=== PATIENT | male | born 1960 | race Caucasian/White ===

== ENCOUNTER → 2016-06-12 | Outpatient (CLI) | payer BC ==
[2016-06-12 14:19] LABS: ABSOLUTE EOSINOPHILS # (AUTO) 0.3 10^3/uL (0.0-0.6); ABSOLUTE LYMPHOCYTES (AUTO) 2.5 10^3/uL (0.5-4.7); ABSOLUTE MONOCYTES (AUTO) 0.7 10^3/uL (0.1-1.4); ABSOLUTE NEUT (AUTO) 5.3 10^3/uL (1.7-8.2); BASOPHILS % (AUTO) 0.3 % (0-2); HEMATOCRIT 44.5 % (37.9-51.0); HEMOGLOBIN 15.1 g/dL (13.5-17.0); HGB HCT DIFFERENCE 0.8; LYMPHOCYTES % (AUTO) 28.8 % (13-45); MEAN CORPUSCULAR HEMOGLOBIN 29.4 pg (27.0-33.4); MEAN CORPUSCULAR HGB CONC 33.9 g/dL (32.0-36.0); MEAN CORPUSCULAR VOLUME 87 fl (80-97); MONOCYTES % (AUTO) 7.8 % (3-13); RED BLOOD COUNT 5.13 10^6/uL (4.35-5.55); RED CELL DISTRIBUTION WIDTH 15.2 % (11.5-14.0); SEGMENTED NEUTROPHILS % (AUTO) 60.1 % (42-78); WHITE BLOOD COUNT 8.8 10^3/uL (4.0-10.5)
[2016-06-12 14:48] LABS: ALANINE AMINOTRANSFERASE 34 U/L (21-72); ALBUMIN 4.3 g/dL (3.5-5.0); ALKALINE PHOSPHATASE 68 U/L (38-126); ANION GAP 13 (5-19); ASPARTATE AMINO TRANSFERASE 28 U/L (17-59); BILIRUBIN,DIRECT 0.3 mg/dL (0.0-0.4); BILIRUBIN,TOTAL 0.6 mg/dL (0.2-1.3); BLOOD UREA NITROGEN 10 mg/dL (7-20); CALCIUM 9.5 mg/dL (8.4-10.2); CARBON DIOXIDE 32 mmol/L (22-30); CHLORIDE 97 mmol/L (98-107); CREATININE RESULT 0.88 mg/dL (0.52-1.25); Direct HDL 40 mg/dL (>40); GLUCOSE 112 mg/dL (75-110); POTASSIUM 4.4 mmol/L (3.6-5.0); SODIUM 142.3 mmol/L (137-145); TOTAL PROTEIN 6.9 g/dL (6.3-8.2); TRIGLYCERIDES 187 mg/dL (<150)
[2016-06-12 14:59] LABS: DIRECT LDL 139 mg/dL (<100)
[2016-06-12 15:16] LABS: VLDL CHOLESTEROL 37.4 mg/dL (10-31)
== END ==
LOC: OD 12:43
PROVIDERS: ATTEND Nurse Practitioner Psychiatric/Mental Health
DX: Z00.00 Encounter for general adult medical examination without abnormal findings (principal); Z12.5 Encounter for screening for malignant neoplasm of prostate
CPT/HCPCS: 36415; 80053; 80061; 84153; 85025

== ENCOUNTER 2017-06-05 06:42 | Day surgery (SDC) | payer BC ==
[~2017-06-05 06:42] MED LIST: KETOROLAC TROMETHAMINE 0.45% 4 DROP/0.4 ML DROPERETTE OD PRN
[2017-06-05] MEDS ORDERED: MIDAZOLAM 2 MG/2 ML INJ ONE (07:06)
[2017-06-05] MEDS: TETRACAINE HCL 0.5% OPH SOLN 2 ML OD PRN ×3 (07:07→08:03)
[2017-06-05] MEDS: CYCLOPENTOLATE 0.2%/PHENYLEPHRINE 1% OPH SOLN 2 ML OD PRN ×3 (07:08→07:35)
[2017-06-05] MEDS: TROPICAMIDE 1% OPH SOLN 3 ML OD PRN ×3 (07:08→07:35)
[2017-06-05] MEDS: BESIFLOXACIN HCL 0.6% OPH SUSP 5 ML BOTTLE OD PRN ×3 (07:08→09:01)
[2017-06-05] MEDS ORDERED: CHONDR SU A NA/HYALUR INTRAOC KIT (SURGICARE) ONE (07:13)
[2017-06-05] MEDS ORDERED: LIDOCAINE 1% INJ-PF (10 MG/ML) 30 ML SDV ONE (07:13)
[2017-06-05] MEDS ORDERED: EPINEPHRINE INJ/PF 1 MG/1 ML AMPULE ONE (07:13)
[2017-06-05] MEDS ORDERED: ACETYLCHOLINE CHLORIDE 20 MG/2 ML KIT ONE (08:38)
[2017-06-05] MEDS ORDERED: CHONDR SU A NA/HYALUR SOD 0.5 ML DISP.SYRIN ONE ×2 (08:38→08:50)
[2017-06-05] MEDS ORDERED: ACETAZOLAMIDE SODIUM INJ 500 MG VIAL ONE (08:49)
[2017-06-05] MEDS ORDERED: BRIMONIDINE TARTRATE 0.2% OPH SOLN 5 ML ONE (09:08)
[2017-06-05] MEDS ORDERED: TOBRAMYCIN SULFATE/DEXAMETH OPH OINTMENT 3.5 GM ONE (09:30)
--- NOTE | 2017-06-05 14:04 | [facility] OPERATIVE REPORT E ---
[facility] Operative Report NAME: SANGEETHA AYALA AGE: 57Y DATE OF SURGERY: 06/05/2017 ROOM: PREOPERATIVE DIAGNOSIS: CATARACT, RIGHT EYE. POSTOPERATIVE DIAGNOSIS: CATARACT, RIGHT EYE. OPERATION: Cataract extraction with sulcus intraocular lens implant of the right eye. SURGEON: PEREZ RIBEIRO M.D. ANESTHESIA: Topical. COMPLICATIONS: Posterior capsule rupture. PROCEDURE: After obtaining appropriate consent, the patient's right eye was prepped and draped in sterile fashion as well as the surgeon in a sterile manner and cataract surgery was started. First a paracentesis blade was used to make a small side-port incision. Viscoelastic was used to inflate the anterior chamber. Next a 2.4 mm incision was made with the paracentesis blade. A continuous capsulorrhexis incision was made using a cystotome and Utrata forceps. Following this hydrodissection was carried out to make the lens fully loose and mobile and it was rotated 90 degrees. Following this, a [id number] technique was used to phacoemulsify the lens with a CDE of 8.47. The remaining cortex was removed with irrigation/aspiration. Provisc was instilled into the capsular bag to inflate the bag. A MA60AC, 24.0 diopter lens was placed. The remaining viscoelastic material was removed with irrigation/aspiration. Following this, a 10-0 nylon suture was used to close the incision and it was found to be watertight. Vigamox was instilled in the eye and a protective shield was placed over the eye. The patient returned to the postoperative recovery in stable condition. After all 4 quadrants of the nucleus had been removed it was noticed that there was a small peripheral posterior capsule rupture. At no point was any vitreous identified coming forward. Viscoelastic was immediately applied to this location. An intact small anterior capsular rectus was curvilinear and it looked like a good opportunity for placement of a sulcus IOL. The appropriate sulcus IOL was brought onto the field. The incision was enlarged and the sulcus IOL was placed anterior to the anterior capsule and found to be in excellent position. Following this Miochol was inserted to shrink the pupil. The pupil was small and round and at no point was any vitreous coming forward. The incision was closed with 2 simple interrupted 10-0 nylon sutures and found to be watertight. At this point for prophylaxis IV Diamox 500 mg IV was given. A drop of Alphagan, a drop of Besivance and then TobraDex ointment was placed in the eye with a pressure patch. Patient woke up in postoperative recovery in stable condition. DICTATING PHYSICIAN: PEREZ RIBEIRO M.D. [id number] PHY#: [id number] ID: [id number] JOB#: [id number] ACCT: [id number] cc:PEREZ RIBEIRO M.D. >
--- NOTE | 2017-06-05 14:04 | [facility] DISCHARGE SUMMARY E ---
[facility] Discharge Summary NAME: SANGEETHA AYALA AGE: 57Y ADMITTED: 06/05/2017 DISCHARGED: 06/05/2017 DIAGNOSIS: CATARACT, RIGHT EYE. SUMMARY: This is a 57-year-old male who underwent cataract extraction of the right eye with complication of a posterior capsule rupture with placement of a sulcus IOL to the right eye. At no point during the procedure did any nuclear fragments fall back in the eye and the nucleus was able to be removed in its entirety. The patient underwent surgery because he was having trouble seeing road signs and words on the television. He should be on a regular diet. He should use his Alphagan at 3 p.m. and come in for a same-day postop visit approximately 5 hours later and he will be using the Besivance, Ilevro and Durezol at 3 p.m. as well after he takes off the pressure patch. Again, he will be on a regular diet. I will see them for a same-day visit. DICTATING PHYSICIAN: PEREZ RIBEIRO M.D. [id number] PHY#: [id number] ID: [id number] JOB#: [id number] ACCT: [id number] cc:PEREZ RIBEIRO M.D. >
== END 2017-06-05 10:11 | disposition home or self-care (01) ==
LOC: SC 06:42
PROVIDERS: ATTEND Internal Medicine
PROC: 08RJ3JZ Replacement of Right Lens with Synthetic Substitute, Percutaneous Approach (ICD-10-PCS; principal; 2017-06-05 08:00)
DX: H25.89 Other age-related cataract (principal); J45.909 Unspecified asthma, uncomplicated; I10 Essential (primary) hypertension; M19.90 Unspecified osteoarthritis, unspecified site; E11.9 Type 2 diabetes mellitus without complications; E66.9 Obesity, unspecified; M10.9 Gout, unspecified; K21.9 Gastro-esophageal reflux disease without esophagitis; Z87.891 Personal history of nicotine dependence; Z79.51 Long term (current) use of inhaled steroids; Z79.899 Other long term (current) drug therapy; Z79.82 Long term (current) use of aspirin; Z68.41 Body mass index [BMI] 40.0-44.9, adult
CPT/HCPCS: 82962; 66984; V2632; J1120; J3490 ×6; J2250; J0171; 142

== ENCOUNTER → 2017-06-27 | Outpatient (CLI) | payer BC ==
--- NOTE | 2017-06-27 13:59 | EKG REPORT ---
SEVERITY:- NORMAL ECG - SINUS RHYTHM : Confirmed by: August Holland MD 27-Jun-2017 13:57:49
== END ==
LOC: OD 09:40
PROVIDERS: ATTEND Physician Assistant
DX: Z79.891 Long term (current) use of opiate analgesic (principal)
CPT/HCPCS: 36415; 80358; 93005; 93010

== ENCOUNTER 2018-10-24 14:17 | Emergency (ER) | payer BC ==
[2018-10-24] MEDS ORDERED: ASPIRIN 81 MG TABLET, CHEWABLE PO ONE (14:46)
--- NOTE | 2018-10-24 14:48 | ER Document Report ---
ED Medical Screen (RME) - General Chief Complaint: Chest Pain Stated Complaint: CHEST PAIN Time Seen by Provider: 10/24/18 14:40 Primary Care Provider: JUDY TADEO MD [Primary Care Provider] - Follow up as needed Mode of Arrival: Ambulatory Information source: Patient Notes: 58-year-old male presented to ED for complaint of chest pain since about 1130 today. He states he has been having chest pain off and on for the last month. He does have a history of pulmonary fibrosis, sarcoidosis, autoimmune disease, psoriatic arthritis, diabetes type 2, and dementia. He has had 2 back surgeries one neck surgery and lung biopsies. He does not smoke very rarely drinks and does not use any drugs. He is disabled and lives with his family. Patient is alert and oriented and speaking in full sentences. Patient is on home oxygen 3 L per nasal cannula I have greeted and performed a rapid initial assessment of this patient. A comprehensive ED assessment and evaluation of the patient, analysis of test results and completion of medical decision making process will be conducted by an additional ED providers. Dictation of this chart was performed using voice recognition software; therefore, there may be some unintended grammatical errors. TRAVEL OUTSIDE OF THE [place] IN LAST 30 DAYS: No - Related Data Allergies/Adverse Reactions: No Known Allergies Allergy (Verified 10/24/18 14:19) Past Medical History - Past Medical History Cardiac Medical History: Reports: Hx Hypertension Denies: Hx Heart Attack - HEART CATH B/C LEFT LUNG HURT-WNL Pulmonary Medical History: Reports: Hx Asthma, Hx Bronchitis, Hx Pneumonia Denies: Hx Tuberculosis Neurological Medical History: Reports: Hx Seizures - SHORT TERM MEMORY,LAST SEIZURE A CHILD. Denies: Hx Cerebrovascular Accident Renal/ Medical History: Reports: Hx Kidney Stones GI Medical History: Reports: Hx Gastroesophageal Reflux Disease, Hx Hiatal Hernia. Denies: Hx Hepatitis, Hx Ulcer Musculoskeltal Medical History: Reports Hx Arthritis Psychiatric Medical History: Reports: Hx Anxiety, Hx Depression Infectious Medical History: Denies: Hx Hepatitis Past Surgical History: Denies: Hx Open Heart Surgery, Hx Pacemaker - Immunizations Hx Diphtheria, Pertussis, Tetanus Vaccination: Yes Physical Exam - Vital signs Vitals: Temp Pulse Resp BP Pulse Ox 98.3 F 94 20 175/101 H 98 10/24/18 14:38 10/24/18 14:38 10/24/18 14:38 10/24/18 14:38 10/24/18 14:38 Course - Vital Signs Vital signs: Temp Pulse Resp BP Pulse Ox 98.3 F 94 20 175/101 H 98 10/24/18 14:38 10/24/18 14:38 10/24/18 14:38 10/24/18 14:38 10/24/18 14:38 Doctor's Discharge - Discharge Referrals: JUDY TADEO MD [Primary Care Provider] - Follow up as needed
[2018-10-24 15:20] LABS: ABSOLUTE BASOPHILS # (AUTO) 0.1 10^3/uL (0.0-0.2); ABSOLUTE EOSINOPHILS # (AUTO) 0.3 10^3/uL (0.0-0.6); ABSOLUTE LYMPHOCYTES (AUTO) 2.5 10^3/uL (0.5-4.7); ABSOLUTE MONOCYTES (AUTO) 0.6 10^3/uL (0.1-1.4); ABSOLUTE NEUT (AUTO) 5.2 10^3/uL (1.7-8.2); BASOPHILS % (AUTO) 0.7 % (0-2); HEMATOCRIT 38.9 % (37.9-51.0); HEMOGLOBIN 12.2 g/dL (13.5-17.0); LYMPHOCYTES % (AUTO) 29.3 % (13-45); MEAN CORPUSCULAR HGB CONC 31.4 g/dL (32.0-36.0); MEAN CORPUSCULAR VOLUME 80 fl (80-97); MONOCYTES % (AUTO) 6.7 % (3-13); PLATELET COUNT 229 10^3/uL (150-450); RED BLOOD COUNT 4.89 10^6/uL (4.35-5.55); RED CELL DISTRIBUTION WIDTH 19.6 % (11.5-14.0); SEGMENTED NEUTROPHILS % (AUTO) 60.3 % (42-78); TOTAL CELLS COUNTED % (AUTO) 100 %; WHITE BLOOD COUNT 8.7 10^3/uL (4.0-10.5)
[2018-10-24 15:31] LABS: INTERNATIONAL RATION (INR) 1.02; PROTHROMBIN TIME 13.4 SEC (11.4-15.4)
[2018-10-24 15:42] LABS: ALBUMIN 4.8 g/dL (3.5-5.0); ALKALINE PHOSPHATASE 70 U/L (38-126); ANION GAP 10 (5-19); ASPARTATE AMINO TRANSFERASE 21 U/L (17-59); BILIRUBIN,DIRECT 0.2 mg/dL (0.0-0.4); BILIRUBIN,TOTAL 0.5 mg/dL (0.2-1.3); BLOOD UREA NITROGEN 14 mg/dL (7-20); CALCIUM 9.5 mg/dL (8.4-10.2); CARBON DIOXIDE 28 mmol/L (22-30); CHLORIDE 101 mmol/L (98-107); CREATINE KINASE 77 U/L (55-170); GLUCOSE 151 mg/dL (75-110); POTASSIUM 4.3 mmol/L (3.6-5.0); TOTAL PROTEIN 7.2 g/dL (6.3-8.2)
--- NOTE | 2018-10-24 15:42 | RADIOLOGY REPORT (SQ) ---
EXAM DESCRIPTION: CHEST 2 VIEWS COMPLETED DATE/TIME: 10/24/2018 3:31 pm REASON FOR STUDY: chest pain COMPARISON: 01/29/2016 EXAM PARAMETERS: NUMBER OF VIEWS: two views TECHNIQUE: Digital Frontal and Lateral radiographic views of the chest acquired. RADIATION DOSE: NA LIMITATIONS: none FINDINGS: LUNGS AND PLEURA: No opacities, masses or pneumothorax. No pleural effusion. MEDIASTINUM AND HILAR STRUCTURES: No masses or contour abnormalities. HEART AND VASCULAR STRUCTURES: Heart normal size. No evidence for failure. BONES: No acute findings. HARDWARE: Anterior cervical fusion, mid OTHER: Hardware mid lower cervical spine, new finding since the prior study. IMPRESSION: 1. No significant interval changes since the prior study dated 01/29/2016. No acute fi ndings. TECHNICAL DOCUMENTATION: JOB ID: [id number] [employer]- All Rights Reserved Reading location - IP/workstation name: [email or web address]
--- NOTE | 2018-10-24 17:48 | EKG REPORT ---
SEVERITY:- BORDERLINE ECG - SINUS RHYTHM PROBABLE LEFT ATRIAL ABNORMALITY PROBABLE LATERAL INFARCT, OLD : Confirmed by: August Holland MD 24-Oct-2018 17:47:50
[2018-10-24] MEDS ORDERED: ACETAMINOPHEN 325 MG TABLET PO ONE (19:40)
--- NOTE | 2018-10-24 20:29 | ER Document Report ---
ED Cardiac - General Chief Complaint: Chest Pain Stated Complaint: CHEST PAIN Time Seen by Provider: 10/24/18 14:40 Primary Care Provider: [facility] [Provider Group] - Follow up as needed JUDY TADEO MD [Primary Care Provider] - 10/28/18 Mode of Arrival: Ambulatory Notes: Patient is a 58-year-old male that comes emergency department for chief complaint of chest pain and a headache. He states that around 11:30 AM he had pain in the center of his chest which was more noticeable than usual, however he has been having intermittent chest pain for the past 2 weeks. He states he started noticing the pain when he gave herself a shot of vitamin B12 in the right hip/buttock and accidentally broke the small needle off inside of him. He states that the area is sore but he cannot feel the foreign body. He denies difficulty breathing but he states he has been more fatigued over the past 2 weeks as well. He denies fever/chills, injury, nausea/vomiting. He states right now he only has a headache. Past medical history includes pulmonary fibrosis, sarcoidosis, hypertension, type 2 diabetes, and he is on 3 L nasal cannula at all times. He had a stress test in 2014 that was negative, never had a heart attack or heart catheterization. He has surgery scheduled next month for his neck and he has chronic pain in his neck as well. He has a buprenorphine patch on. TRAVEL OUTSIDE OF THE [place] IN LAST 30 DAYS: No - Related Data Allergies/Adverse Reactions: No Known Allergies Allergy (Verified 10/24/18 14:19) Past Medical History - General Information source: Patient - Social History Smoking Status: Current Some Day Smoker Frequency of alcohol use: None Drug Abuse: None Lives with: Family Family History: Reviewed & Not Pertinent Patient has suicidal ideation: No Patient has homicidal ideation: No - Past Medical History Cardiac Medical History: Reports: Hx Hypertension Denies: Hx Heart Attack - HEART CATH B/C LEFT LUNG HURT-WNL Pulmonary Medical History: Reports: Hx Asthma, Hx Bronchitis, Hx Pneumonia Denies: Hx Tuberculosis Neurological Medical History: Reports: Hx Seizures - SHORT TERM MEMORY,LAST SEIZURE A CHILD. Denies: Hx Cerebrovascular Accident Renal/ Medical History: Reports: Hx Kidney Stones. Denies: Hx Peritoneal Dialysis GI Medical History: Reports: Hx Gastroesophageal Reflux Disease, Hx Hiatal Hernia. Denies: Hx Hepatitis, Hx Ulcer Musculoskeletal Medical History: Reports Hx Arthritis Psychiatric Medical History: Reports: Hx Anxiety, Hx Depression Infectious Medical History: Denies: Hx Hepatitis Past Surgical History: Denies: Hx Open Heart Surgery, Hx Pacemaker - Immunizations Hx Diphtheria, Pertussis, Tetanus Vaccination: Yes Review of Systems - Review of Systems Constitutional: See HPI EENT: No symptoms reported Cardiovascular: See HPI Respiratory: See HPI Gastrointestinal: No symptoms reported Genitourinary: No symptoms reported Male Genitourinary: No symptoms reported Musculoskeletal: No symptoms reported Skin: No symptoms reported Hematologic/Lymphatic: No symptoms reported Neurological/Psychological: See HPI Physical Exam - Vital signs Vitals: Temp Pulse Resp BP Pulse Ox 98.3 F 94 20 175/101 H 98 10/24/18 14:38 10/24/18 14:38 10/24/18 14:38 10/24/18 14:38 10/24/18 14:38 - Notes Notes: GENERAL: Alert, interacts well. No acute distress. HEAD: Normocephalic, atraumatic. EYES: Pupils equal, round, and reactive to light. Extraocular movements intact. ENT: Oral mucosa moist, tongue midline. Oropharynx unremarkable. Airway patent. LUNGS: Clear to auscultation bilaterally, no wheezes, rales, or rhonchi. No respiratory distress. HEART: Regular rate and rhythm. No murmur ABDOMEN: Soft, non-tender. Non-distended. Bowel sounds present in all 4 quadrants. GENITOURINARY: Deferred EXTREMITIES: Moves all 4 extremities spontaneously. No edema, normal radial and dorsalis pedis pulses bilaterally. No cyanosis. BACK: no cervical, thoracic, lumbar midline tenderness. No saddle anesthesia, normal distal neurovascular exam. Moves all extremities in full range of motion. NEUROLOGICAL: Alert and oriented x3. Normal speech. Cranial nerves II through XII grossly intact. PSYCH: Normal affect, normal mood. SKIN: Warm, dry, normal turgor. Mild tenderness with palpation over the right upper lateral buttock. No foreign body felt. Course - Re-evaluation Re-evalutation: Patient is complaining of a headache on my evaluation, does not complain of current chest pain. He does have hypertension. He denies injury. He does not have neurological deficits. Discussed options, decision was made to scan the head, this was negative. On reevaluation after medications patient is asymptomatic. He denies any current complaints except for the needle in the right posterior upper buttock area that he broke off. I did offer to perform an x-ray, patient declined. Patient requests to leave, he states he has an appointment with his primary care provider on Sunday, he asks for referral to get the needle out as well. He will be referred to the surgical clinic. We have decided to give him short-term antibiotic prophylaxis because of the inserted foreign body. CBC unremarkable, chemistry unremarkable, both troponins are indeterminate without significant change. EKG without significant change, chest x-ray unremarkable. Patient states his symptoms have been going on a long time, he states he is "pretty sure it is from the long because I have had this before and it feels like it". I discussed the option of patient being admitted for chest pain rule out, patient declines. Patient does have a heart score of 3. Symptoms are not new. Discussed with and she states they will follow-up with primary care on Sunday and return if he worsens in any way. Stable time of discharge. - Vital Signs Vital signs: Temp Pulse Resp BP Pulse Ox 98.6 F 85 17 168/95 H 100 10/24/18 21:54 10/24/18 21:54 10/24/18 21:54 10/24/18 21:54 10/24/18 21:54 - Laboratory Result Diagrams: 10/24/18 15:09 10/24/18 15:09 Laboratory results interpreted by me: 10/24/18 10/24/18 15:09 15:09 Hgb 12.2 L MCH 25.0 L MCHC 31.4 L RDW 19.6 H Creatinine 1.33 H Est GFR (Non-Af Amer) 55 L Glucose 151 H - EKG Interpretation by Me Additional EKG results interpreted by me: EKG shows sinus rhythm rate of 94, QTC of 421, normal axis. No T wave inversions or ST segment changes in consecutive leads. Borderline Q waves in the lateral leads I and aVL. However this does not appear significantly changed from prior. Discharge - Discharge Clinical Impression: Chest pain of uncertain etiology, Needle stick injury Headache Qualifiers: Headache type: unspecified Headache chronicity pattern: episodic headache Intractability: not intractable Qualified Code(s): R51 - Headache Condition: Stable Disposition: HOME, SELF-CARE Additional Instructions: Your work-up does not show any concerning new findings at this time. Take the Bactrim antibiotic to avoid infection from the needlestick, follow-up with the surgical clinic referral for removal. Follow-up with your primary care provider on Sunday as we discussed. Return if you worsen including return to worsening pain, fever, severe worsening headache, vomiting, developing or spreading redness of your back/buttocks, or any other concerning or worsening symptoms. Prescriptions: Sulfamethoxazole/Trimethoprim [Bactrim Ds Tablet] 1 each PO BID #10 tablet Referrals: JUDY TADEO MD [Primary Care Provider] - 10/28/18 [facility] [Provider Group] - Follow up as needed
[2018-10-24] MEDS ORDERED: ONDANSETRON HCL INJ/PF 4 MG/2 ML SDV IV ONE (20:30)
[2018-10-24] MEDS ORDERED: HYDROMORPHONE HCL INJ/PF 2 MG/ML AMPULE IV ONE (20:30)
--- NOTE | 2018-10-24 21:21 | RADIOLOGY REPORT (SQ) ---
EXAM DESCRIPTION: CT HEAD WITHOUT INTRAVENOUS CONTRAST CLINICAL HISTORY: Hypertension. Headache. COMPARISON: CT 01/17/2015. TECHNIQUE: CT of the head was performed without intravenous contrast .This exam was performed according to our departmental dose-optimization program, which includes automated exposure control, adjustment of the mA and/or KV according to the patient's size and/or use of iterative reconstruction technique. FINDINGS: There is no intracranial hemorrhage, midline shift, mass effect or acute focal infarct. There is good chacko/white matter differentiation. The ventricular system is normal. Visualized mastoid air cells within normal limits. The paranasal sinuses within normal limits. There is no visualization of calvarial or skull base fractures. IMPRESSION: There are no acute intracranial findings.
[2018-10-24 22:02] VITALS: BP 168/95
== END 2018-10-24 22:02 | disposition home or self-care (01) ==
LOC: ER 14:17
DX: S81.841A Puncture wound with foreign body, right lower leg, initial encounter (principal); R07.9 Chest pain, unspecified; R51 Headache; W22.8XXA Striking against or struck by other objects, initial encounter; Z79.899 Other long term (current) drug therapy; E11.9 Type 2 diabetes mellitus without complications; I10 Essential (primary) hypertension; Z99.81 Dependence on supplemental oxygen; J45.909 Unspecified asthma, uncomplicated
CPT/HCPCS: 93005; 99285; 96374; 96375; 36415; 82553; 82550; 83690; 85025; 85610; 85730; 80053; 84484; 71046; 70450; 93010; J1170; J2405

== ENCOUNTER 2018-11-27 11:52 | Day surgery (SDC) | payer BC ==
[2018-11-27] MEDS: TROPICAMIDE 1% OPH SOLN 3 ML OS PRN ×3 (11:45→13:05)
[2018-11-27] MEDS: TETRACAINE HCL 0.5% OPH SOLN 4 ML OS PRN ×3 (11:45→13:18)
[2018-11-27] MEDS: CYCLOPENTOLATE 0.2%/PHENYLEPHRINE 1% OPH SOLN 2 ML OS PRN ×3 (11:45→13:05)
[2018-11-27] MEDS: BESIFLOXACIN HCL 0.6% OPH SUSP 5 ML BOTTLE OS PRN ×4 (11:45→13:38)
[~2018-11-27 11:52] MED LIST changes: +CHONDR SU A NA/HYALUR INTRAOC KIT (SURGICARE) ONE; +EPINEPHRINE INJ/PF 1 MG/1 ML AMPULE ONE; -KETOROLAC TROMETHAMINE 0.45% 4 DROP/0.4 ML DROPERETTE OD PRN; +KETOROLAC TROMETHAMINE 0.45% 4 DROP/0.4 ML DROPERETTE OS PRN; +LIDOCAINE 1%/PHENYLEPHRINE 1.5% 1 ML VIAL ONE
[2018-11-27] MEDS ORDERED: MIDAZOLAM 2 MG/2 ML INJ ONE (12:27)
[2018-11-27] MEDS ORDERED: FENTANYL CITRATE INJ/PF 100 MCG/2 ML AMPUL ONE (12:27)
[2018-11-27] MEDS: DORZOLAMIDE HCL 2%/TIMOLOL MALEAT 0.5% OPH SOLN 10 ML OS PRN ×2 (13:38)
--- NOTE | 2018-11-27 15:25 | Operative Report ---
Operative Report-[facility] Operative Report: DATE OF SURGERY: 11/27/2018 PREOPERATIVE DIAGNOSIS: Cataracts, left eye POSTOPERATIVE DIAGNOSIS: Cataract, left eye OPERATION: Cataract extraction with insertion of an IOL of the left eye. Intraocular Lens Model:24.5 sn60wf [pt underwent surgery due to difficulty seeing small print. SURGEON: Greg Sigala MD ANESTHESIA: Topical PROCEDURE: After obtaining appropriate consent, the patient's left eye was prepped and draped in a sterile fashion as well as the surgeon in the sterile manner and cataract surgery was started. First a paracentesis blade was used to make a side-port incision. Viscoelastic was used to inflate the anterior chamber. Next a 2.4 mm incision was made with a 2.4 mm blade, clear corneal temporarily. A continuous capsulorrhexis was made using a cystotome and Utrata forceps. Following this hydrodissection was carried out to make commands fully loose and mobile and it was rotated 90 degrees. Following this, a divide and conquer technique was used to phacoemulsify the lens. The remaining cortex was removed with an irrigation/aspiration. Provisc was instilled into the capsular bag to inflate the bag.The intracular lens was placed. The remaining viscoelastic material was removed with irrigation/aspiration. Following this, the incision was found to be watertight. Besivance and Cosopt was instilled into the eye and a protective shield was placed over the eye. The patient was turned to the postoperative recovery in a stable condition.
== END 2018-11-27 14:15 | disposition home or self-care (01) ==
LOC: SC 11:52
PROVIDERS: ATTEND Internal Medicine
DX: H25.812 Combined forms of age-related cataract, left eye (principal); H40.053 Ocular hypertension, bilateral; Z96.1 Presence of intraocular lens; I10 Essential (primary) hypertension; E11.9 Type 2 diabetes mellitus without complications; E78.00 Pure hypercholesterolemia, unspecified; J44.9 Chronic obstructive pulmonary disease, unspecified; D86.0 Sarcoidosis of lung; G47.30 Sleep apnea, unspecified; K21.9 Gastro-esophageal reflux disease without esophagitis; J84.10 Pulmonary fibrosis, unspecified; M10.9 Gout, unspecified; Z87.891 Personal history of nicotine dependence; Z79.51 Long term (current) use of inhaled steroids; Z79.899 Other long term (current) drug therapy
CPT/HCPCS: 66984; 82962; V2632; J2250; J3490 ×2; J0171; J3010; J2370; 142